=== PATIENT | male | born 1975 | race Caucasian/White ===

== ENCOUNTER 2021-08-10 11:24 | Emergency (ER) | payer BC, OTHER ==
[~2021-08-10] VITALS: Ht 188 cm; Wt 127.0 kg
[2021-08-10 13:32] LABS: Basophils # (auto) 0 10 ^3/uL (0-0.2); Basophils % (auto) 0.5 % (0.0-2.0); Eosinophils # (auto) 0 10 ^3/uL (0-0.8); Eosinophils % (auto) 0.2 % (0.0-7.0); Hemoglobin 16.5 g/dL (13.5-17.5); Lymphocytes # (auto) 1.5 10 ^3/uL (0.4-5.4); Lymphocytes % (auto) 16.7 % (10.0-50.0); Mean Corpuscular Hemoglobin 29.5 pg (28.0-32.0); Mean Corpuscular Hgb Conc. 34.4 g/dL (32.0-36.0); Mean Corpuscular Volume 85.9 fL (80.0-100.0); Monocytes # (auto) 0.5 10 ^3/uL (0-1.3); Monocytes % (auto) 6.1 % (0.0-12.0); Neutrophils # (auto) 6.9 10 ^3/uL (1.6-8.6); Neutrophils % (auto) 76.5 % (37.0-80.0); Nucleated Red Blood Cells % 0.2 %; Red Blood Cells 5.59 10^6/uL (4.5-5.90); Red Cell Distribution Width 13.1 % (11.8-14.3)
[2021-08-10 13:48] LABS: Magnesium 2.7 mg/dL (1.6-2.6); Potassium 3.4 mmol/L (3.5-5.1)
[2021-08-10 13:53] LABS: BUN/Creatinine Ratio 12.3; Bilirubin, Total 1.1 mg/dL (0.2-1.0); Total Protein 8.6 g/dL (6.4-8.2)
[2021-08-10 16:47] VITALS: BP 145/95
== END 2021-08-10 16:51 | disposition home or self-care (01) ==
LOC: ER 11:24
DX: R07.89 Other chest pain (principal); T50.B95A Adverse effect of other viral vaccines, initial encounter; I10 Essential (primary) hypertension; E11.9 Type 2 diabetes mellitus without complications; Y92.89 Other specified places as the place of occurrence of the external cause
CPT/HCPCS: 36415; 71045; 80053; 83735; 84443; 84484; 85025; 93005

== ENCOUNTER 2023-07-05 23:05 | Emergency (ER) | payer BC ==
[~2023-07-05] VITALS: Ht 188 cm; Wt 136.4 kg
[2023-07-06 01:04] VITALS: BP 146/73; PULSE 86; RESP 16; TEMP 98.1; O2SAT 95
== END 2023-07-06 00:51 | disposition home or self-care (01) ==
LOC: ER 23:05
DX: R00.2 Palpitations (principal); E11.9 Type 2 diabetes mellitus without complications; I10 Essential (primary) hypertension
CPT/HCPCS: 82962; 93005

== ENCOUNTER 2023-07-19 20:18 | Inpatient (IN) | payer BC ==
[~2023-07-19] VITALS: Ht 188 cm; Wt 102.4 kg
[2023-07-19 21:11] LABS: Basophils # (auto) 0.1 10 ^3/uL (0-0.2); Basophils % (auto) 0.8 % (0.0-2.0); Eosinophils # (auto) 0.1 10 ^3/uL (0-0.8); Eosinophils % (auto) 1.1 % (0.0-7.0); Hematocrit 46.9 % (41.0-53.0); Hemoglobin 15.6 g/dL (13.5-17.5); Lymphocytes % (auto) 45.7 % (10.0-50.0); Mean Corpuscular Hemoglobin 28.8 pg (28.0-32.0); Mean Corpuscular Hgb Conc. 33.3 g/dL (32.0-36.0); Mean Corpuscular Volume 86.6 fL (80.0-100.0); Monocytes # (auto) 0.5 10 ^3/uL (0-1.3); Monocytes % (auto) 7.1 % (0.0-12.0); Neutrophils # (auto) 2.9 10 ^3/uL (1.6-8.6); Neutrophils % (auto) 45.3 % (37.0-80.0); Nucleated Red Blood Cells % 0.2 %; Red Blood Cells 5.42 10^6/uL (4.5-5.90); White Blood Cell 6.5 10^3/uL (4.4-10.8)
[2023-07-19 21:15] VITALS: PULSE 76; RESP 20; O2SAT 100
[2023-07-19 21:17] LABS: Chloride 105 mmol/L (98-107); Potassium 3.5 mmol/L (3.5-5.1); Sodium 139 mmol/L (136-145)
[2023-07-19 21:18] LABS: Anion Gap 6 (5-15); Carbon Dioxide 28 mmol/L (20-30)
[2023-07-19 21:19] LABS: Calcium 9.4 mg/dL (8.5-10.1)
[2023-07-19 21:23] LABS: Glucose 159 mg/dL (74-106)
[2023-07-19 21:24] LABS: BUN/Creatinine Ratio 9.8 (10.0-20.0); Blood Urea Nitrogen 13 mg/dL (9-23)
[2023-07-19] MEDS: ASPirin 325 MG TAB PO ONE (23:10)
[2023-07-20] VITALS (8 sets, daily range): BP systolic 113–159; BP diastolic 82–93; PULSE 63–86; RESP 16–19; TEMP 97.8–98.8; O2SAT 92–100
[2023-07-20] MEDS ORDERED: ONDANSETRON HCL 4 MG/2 ML VIAL IV PRN (01:15)
[2023-07-20] MEDS ORDERED: hydrALAZINE HCL 20 MG/ML VL IV PRN (01:15)
[2023-07-20] MEDS ORDERED: ACETAMINOPHEN 325 MG TAB PO PRN (01:15)
[2023-07-20] MEDS ORDERED: HYDROcodone-ACET 5/325MG TAB PO PRN (01:15)
[2023-07-20] MEDS ORDERED: DOCUSATE SOD 100 MG CAP PO PRN (01:15)
[2023-07-20] MEDS ORDERED: NITROGLYCERIN 0.4 MG SL TAB SL PRN (02:30)
[2023-07-20] MEDS ORDERED: MORPHINE SULFATE INJ 2 MG/ml SYRG IV PRN (02:30)
[2023-07-20] MEDS ORDERED: ECON1CRE6 TOP (04:32)
[2023-07-20] MEDS ORDERED: HYDR25TA5 PO (04:32)
[2023-07-20] MEDS ORDERED: AMLO1TAB22 PO (04:32)
[2023-07-20] MEDS ORDERED: LOSA-534 PO (04:32)
[2023-07-20] MEDS ORDERED: ROSU10TA64 PO (04:32)
[2023-07-20] MEDS ORDERED: FLUT50SP NAS (04:32)
[2023-07-20] MEDS ORDERED: EMPA1TAB3 PO (04:32)
[2023-07-20] MEDS: SODIUM CHLOR 0.9% PF (SALINE LOCK) 10ML VIAL/SYR IV SCH (06:35)
[2023-07-20 06:54] LABS: Basophils # (auto) 0 10 ^3/uL (0-0.2); Basophils % (auto) 0.5 % (0.0-2.0); Eosinophils # (auto) 0.1 10 ^3/uL (0-0.8); Eosinophils % (auto) 1.4 % (0.0-7.0); Hematocrit 46.9 % (41.0-53.0); Hemoglobin 15.9 g/dL (13.5-17.5); Lymphocytes # (auto) 2.5 10 ^3/uL (0.4-5.4); Lymphocytes % (auto) 42.3 % (10.0-50.0); Mean Corpuscular Hemoglobin 29.2 pg (28.0-32.0); Mean Corpuscular Hgb Conc. 33.8 g/dL (32.0-36.0); Mean Corpuscular Volume 86.4 fL (80.0-100.0); Monocytes # (auto) 0.5 10 ^3/uL (0-1.3); Monocytes % (auto) 8.3 % (0.0-12.0); Neutrophils # (auto) 2.8 10 ^3/uL (1.6-8.6); Neutrophils % (auto) 47.5 % (37.0-80.0); Nucleated Red Blood Cells % 0.1 %; Red Blood Cells 5.43 10^6/uL (4.5-5.90); Red Cell Distribution Width 12.8 % (11.8-14.3); White Blood Cell 5.8 10^3/uL (4.4-10.8)
[2023-07-20 07:07] LABS: Alanine Aminotransferase 49 U/L (7-40); Alkaline Phosphatase 65 U/L (46-116); Anion Gap 9 (5-15); Aspartate Aminotransferase 37 U/L (13-40); BUN/Creatinine Ratio 9.3 (10.0-20.0); Blood Urea Nitrogen 10 mg/dL (9-23); Calcium 9.3 mg/dL (8.5-10.1); Carbon Dioxide 26 mmol/L (20-30); Chloride 106 mmol/L (98-107); Glucose 90 mg/dL (74-106); Potassium 3.6 mmol/L (3.5-5.1); Sodium 141 mmol/L (136-145)
[2023-07-20 07:08] LABS: Bilirubin, Total 0.5 mg/dL (0.2-1.0); Total Protein 6.9 g/dL (5.7-8.2)
[2023-07-20] MEDS: ASPirin 81 mg TAB PO SCH (08:29)
[2023-07-20 12:52] LABS: Triglycerides 92 mg/dL (< 150)
[2023-07-20 12:53] LABS: LDL Cholesterol 58 mg/dL (< 100)
[2023-07-20 12:54] LABS: Cholesterol 100 mg/dL (< 200); HDL Cholesterol 27 mg/dL (40-59)
[2023-07-20] MEDS: ATORVASTATIN 20 MG TAB PO SCH (22:33)
[2023-07-21 05:00] VITALS: BP 117/75; PULSE 85; RESP 19; TEMP 98.1; O2SAT 95
[2023-07-21 07:03] LABS: Basophils # (auto) 0 10 ^3/uL (0-0.2); Basophils % (auto) 0.4 % (0.0-2.0); Eosinophils # (auto) 0.1 10 ^3/uL (0-0.8); Eosinophils % (auto) 1.5 % (0.0-7.0); Hematocrit 50.5 % (41.0-53.0); Hemoglobin 17.3 g/dL (13.5-17.5); Lymphocytes # (auto) 2.9 10 ^3/uL (0.4-5.4); Lymphocytes % (auto) 41.8 % (10.0-50.0); Mean Corpuscular Hemoglobin 29.5 pg (28.0-32.0); Mean Corpuscular Hgb Conc. 34.3 g/dL (32.0-36.0); Mean Corpuscular Volume 86.1 fL (80.0-100.0); Monocytes # (auto) 0.6 10 ^3/uL (0-1.3); Monocytes % (auto) 8.4 % (0.0-12.0); Neutrophils # (auto) 3.3 10 ^3/uL (1.6-8.6); Neutrophils % (auto) 47.9 % (37.0-80.0); Red Blood Cells 5.86 10^6/uL (4.5-5.90); Red Cell Distribution Width 12.9 % (11.8-14.3); White Blood Cell 6.9 10^3/uL (4.4-10.8)
[2023-07-21 07:12] LABS: Alanine Aminotransferase 48 U/L (7-40); Alkaline Phosphatase 69 U/L (46-116); Anion Gap 10 (5-15); BUN/Creatinine Ratio 9.4 (10.0-20.0); Blood Urea Nitrogen 11 mg/dL (9-23); Calcium 9.5 mg/dL (8.5-10.1); Carbon Dioxide 24 mmol/L (20-30); Chloride 106 mmol/L (98-107); Glucose 90 mg/dL (74-106); Potassium 3.5 mmol/L (3.5-5.1); Sodium 140 mmol/L (136-145)
[2023-07-21 07:13] LABS: Albumin 4.1 g/dL (3.2-4.8); Aspartate Aminotransferase 34 U/L (13-40); Bilirubin, Total 0.5 mg/dL (0.2-1.0)
[2023-07-21 08:00] VITALS: BP 118/83; PULSE 92; RESP 16; TEMP 98.3; O2SAT 96
[2023-07-21 09:00] VITALS: BP 118/83; PULSE 92; RESP 16; TEMP 98.3; O2SAT 96
[2023-07-21] MEDS: LOSARTAN POTASSIUM 50 MG TAB PO SCH (09:07)
[2023-07-21] MEDS: hydroCHLOROthiazide 25 MG TAB PO SCH (09:08)
[2023-07-21 09:40] LABS: Hepatitis B Surface Antigen Negative (Negative)
[2023-07-21] MEDS ORDERED: amLODIPine BESYLATE 5 MG TAB PO SCH (10:00)
[2023-07-21] MEDS ORDERED: EMPAGLIFLOZIN 10 MG TAB PO SCH (10:00)
[2023-07-21 10:02] LABS: Hepatitis C Antibody Negative (Negative)
== END 2023-07-21 12:15 | disposition left against medical advice (07) | DRG 303 ==
LOC: EDBD 20:18 → ER 20:18 → TELE 07-20 02:19 → TELE-CENTR 07-20 03:44
PROVIDERS: ADMIT Nurse Practitioner Family; ATTEND Family Medicine
DX: I25.10 Atherosclerotic heart disease of native coronary artery without angina pectoris (principal); R20.2 Paresthesia of skin; E11.9 Type 2 diabetes mellitus without complications; E78.00 Pure hypercholesterolemia, unspecified; I10 Essential (primary) hypertension; Z53.29 Procedure and treatment not carried out because of patient's decision for other reasons; I48.91 Unspecified atrial fibrillation; Z88.8 Allergy status to other drugs, medicaments and biological substances; Z82.3 Family history of stroke; Z82.49 Family history of ischemic heart disease and other diseases of the circulatory system; Z82.0 Family history of epilepsy and other diseases of the nervous system; Z83.3 Family history of diabetes mellitus
CPT/HCPCS: 36415; 70450; 70551; 80048; 80053; 80061; 84484; 85025; 86803; 87340; 93005; 93306; 93886; G0378